=== PATIENT | female | born 1985 | race Caucasian/White ===

== ENCOUNTER 2024-04-08 10:54 | Emergency (ER) | payer OTHER, SELFPAY ==
--- NOTE | 2024-04-08 11:31 | ED.GENMED ---
History of Present Illness
<Chivo Dexter Jr., PA-C - Last Filed: 04/08/24 14:28>
General
Chief Complaint: Catheter/Tube Problem
Source: patient and police
Exam Limitations: none
Time Seen by Provider: 04/08/24 10:58
Nursing documentation reviewed up to this point in time: agreed with
History of Present Illness
History of Present Illness:
38-year-old female presenting to the emergency department from senior care with concerns of tracheostomy issue. She claims that the strap and the tube itself is damaged and needs a new one. This has been established track for multiple years. She
claims that she also had a mild achiness to the chest only with coughing over the past few days denies any significant ongoing pain at this point. EKG and chest x-ray ordered
Past History
<Chivo Dexter Jr., PA-C - Last Filed: 04/08/24 14:28>
Past History
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
ED Past Surgical History: Other
Social History
Living: senior care
Review of Systems
<Chivo Dexter Jr., PA-C - Last Filed: 04/08/24 14:28>
Review of Systems
Allergies reviewed?: Yes
All Other Systems: ROS reviewed and negative except as documented in HPI and ROS
Phy Exam
<Chivo Dexter Jr., PA-C - Last Filed: 04/08/24 14:28>
Physical Exam
Physical Exam:
GENERAL: Alert , in no apparent distress
EYE: pupils equal and reactive
NECK: Supple, no significant adenopathy.
ENT: Trach in place o/p clr, mmm.
CARDIAC: Regular rate and rhythm .
LUNGS: Clear breath sounds bilaterally, no acute respiratory distress, no wheezes/rales/rhonchi
ABDOMEN: Soft, without focal tenderness, no r/g, no cvat
NEUROLOGICAL: Alert and oriented, no focal neuro deficits
SKIN: Warm and dry, skin intact.
MUSCULOSKELETAL: No edema, well perfused.
PSYCH: Normal and appropriate interaction.
Course
<Chivo Dexter Jr. PAConchis - Last Filed: 04/08/24 14:28>
Orders/Labs/Results
Orders:
Orders
04/08/24 12:14
EKG [Electrocardiogram (*1)] Urgent
Reason for Study: Chest Pain
EKG- Treatment ONCE
Chest [CR Chest - 2 Views ] Urgent
Comment:
Reason For Exam: cp
Vital Signs
Initial and Last Documented VS:
Initial Vital Signs
Pulse Resp BP Pulse Ox
80 16 101/70 100
04/08/24 14:07 04/08/24 14:07 04/08/24 14:07 04/08/24 14:07
Last Documented Vital Signs
Pulse Resp BP Pulse Ox
80 16 101/70 100
04/08/24 14:07 04/08/24 14:07 04/08/24 14:07 04/08/24 14:07
<Carrillo Kraft, - Last Filed: 04/08/24 12:02>
Orders/Labs/Results
Orders:
Orders
04/08/24 12:14
EKG [Electrocardiogram (*1)] Urgent
Reason for Study: Chest Pain
EKG- Treatment ONCE
Chest [CR Chest - 2 Views ] Urgent
Comment:
Reason For Exam: cp
Vital Signs
Initial and Last Documented VS:
Initial Vital Signs
Pulse Resp BP Pulse Ox
80 16 101/70 100
04/08/24 14:07 04/08/24 14:07 04/08/24 14:07 04/08/24 14:07
Last Documented Vital Signs
Pulse Resp BP Pulse Ox
80 16 101/70 100
04/08/24 14:07 04/08/24 14:07 04/08/24 14:07 04/08/24 14:07
Procedures
<Carrillo Kraft DO - Last Filed: 04/08/24 12:02>
Other
Indication for procedure:: Trach replacement
Procedure completed by: Carrillo Kraft DO
Consent form signed: No
Additional Procedure:
Patient given verbal consent. Patient's 5.0 Shiley was replaced with a new 5.0 Shiley. Patient tolerated procedure well
<Chivo Dexter Jr., PA-C - Last Filed: 04/08/24 14:28>
MDM/Problems Addressed
MDM/Problems Addressed:
38-year-old female presenting to the emergency department today with concerns of trach malfunction. She otherwise is breathing well but requires a replacement at this point. This was replaced here without incident otherwise EKG and chest x-ray
normal but possibility of pulmonary nodule this was notified to the patient and otherwise advised for outpatient follow-up for this. In reference to patient's intermittent achy discomfort only with coughing. Otherwise stable for discharge back to
senior care.
<Chivo Dexter Jr., PA-C - Last Filed: 04/08/24 14:28>
*Critical Care Note
Total Time (30-74mins, 75-104mins- exclusive of procedures): Not Applicable
ED Attending Note
<Chivo Dexter Jr., PA-C - Last Filed: 04/08/24 14:28>
-
Portions of this chart may have been created with voice recognition software.� Occasional wrong word or��sound alike� substitutions may have occurred due to the inherent limitations of voice recognition software.
<Carrillo Kraft DO - Last Filed: 04/08/24 12:02>
ED Attending Note
Patient seen and examined by attending physician: Yes
I performed the substantive portion of visit, reviewed & personally made and approve the management plan that is documented in note by myself or JIM.: Yes
ED Attending Note:
I have seen and evaluated the patient with a [id number] encounter. I have spoken to the advance practicer provider and involved in the medical history, the physical exam, medical decision making.
Evaluation and management service: agree unless noted differently below.
Results interpretation: agree unless noted differently below.
Focused HPI: 38-year-old female presenting from [facility] for trach replacement. Patient states the trach is old and needs to come out
Physical exam: 5.[address] No surrounding erythema or edema
Medical Decision Making: Patient's trach was replaced with another 5.0 Shiley. She tolerated procedure well
Discharge Plan
Departure
Patient Disposition: Correction
Date of Disposition: 04/08/24
Time of Disposition: 14:27
Patient with high blood pressure during this ER visit?: No
Condition: Good
Covid-19: Not Applicable
Discharge Problem:
Incidental pulmonary nodule, Tracheostomy, acute management
Instructions: Pulmonary nodule, Tracheostomy
Referrals:
[facility] [Family Provider] -
Activity Restrictions/Additional Instructions:
You came for tracheostomy replacement. Here this was replaced without incident. Additionally you are found to have a small pulmonary nodule on your x-ray. It is recommended that you follow-up as an outpatient with dedicated CT scan.
Interventions
Interventions:
*Risk Screen - Suicide Last Done: 04/08/24 11:04
*General Assessment Last Done: 04/08/24 11:04
*Neglect/Abuse Screening Last Done: 04/08/24 11:04
ED- Fall Risk Assessment Last Done: 04/08/24 11:13
*ED COVID-19 Vaccine History Last Done: 04/08/24 11:04
CJ-Nbiixq-Qqqbvzpnlf Assessment Last Done: 04/08/24 11:04
ED-Female Genitourinary Assessment Last Done: 04/08/24 11:04
Discharge Date and Time
Print Language: ERITREAN
--- NOTE | 2024-04-08 12:01 | EDRN ---
#5 Shiley trach replaced and ties placed by Dr. Kraft w/ assist of [employer].
--- NOTE | 2024-04-08 12:30 | EDRN ---
Trach tape velcro style placed to secure trach at this time.
--- NOTE | 2024-04-08 12:33 | EDRN ---
Pt presently in BR at this time. Pt will change for CXR and needs an EKG.
--- NOTE | 2024-04-08 13:36 | EDRN ---
Pt awaiting to go to xray for CXR. Pt sleeping at this time.
[2024-04-08 14:07] VITALS: BP 101/70
[2024-04-08 14:08] VITALS: BMI 23.3
== END 2024-04-08 14:44 ==
LOC: EMR 10:54
PROVIDERS: EMERGENCY PHYSICIAN Student in an Organized Health Care Education/Training Program
DX: Z43.0 Encounter for attention to tracheostomy (principal); R05.9 Cough, unspecified; R07.1 Chest pain on breathing; R91.1 Solitary pulmonary nodule; I49.9 Cardiac arrhythmia, unspecified; F41.9 Anxiety disorder, unspecified; F43.10 Post-traumatic stress disorder, unspecified; Z86.16 Personal history of COVID-19
CPT/HCPCS: 99283; 71046; 93005

== ENCOUNTER → 2024-04-17 14:09 | Outpatient (REF) | payer OTHER, SELFPAY | LOC: RAD 14:09 | DX: R91.1 Solitary pulmonary nodule (principal) | CPT/HCPCS: 71250 ==